=== PATIENT | female | born 1950 | race African-American/Black ===

== ENCOUNTER 2018-10-11 17:51 | Emergency (ER) | payer BC ==
[~2018-10-11] VITALS: Ht 167.6 cm; Wt 85.0 kg
[~2018-10-11 17:51] MED LIST: LOTREL
[2018-10-11] MEDS ORDERED: IBUPROFEN 600MG TABLET PO ONE (18:45)
[2018-10-11 18:59] VITALS: BP 158/70
== END 2018-10-11 20:39 | disposition home or self-care (01) ==
LOC: ER 17:51
DX: S83.91XA Sprain of unspecified site of right knee, initial encounter (principal); S76.011A Strain of muscle, fascia and tendon of right hip, initial encounter; M47.896 Other spondylosis, lumbar region; I10 Essential (primary) hypertension; Z88.3 Allergy status to other anti-infective agents; Z88.0 Allergy status to penicillin; W01.0XXA Fall on same level from slipping, tripping and stumbling without subsequent striking against object, initial encounter; Y93.89 Activity, other specified; Y92.89 Other specified places as the place of occurrence of the external cause; Y99.8 Other external cause status
CPT/HCPCS: 73522; 73562; 99283

== ENCOUNTER 2022-01-14 21:26 | Emergency (ER) | payer BC ==
[~2022-01-14] VITALS: Ht 170.2 cm; Wt 84.0 kg
[2022-01-14] MEDS ORDERED: ACETAMINOPHEN 325MG TABLET PO ONE (23:30)
[2022-01-15] MEDS ORDERED: ACETAMINOPHEN 325MG TABLET PO SCH (00:45)
[2022-01-15] MEDS ORDERED: TOPUD MT (02:08)
[2022-01-15 02:39] VITALS: BP 152/83
== END 2022-01-15 02:52 | disposition home or self-care (01) ==
LOC: ER 21:26
DX: M25.551 Pain in right hip (principal); M25.561 Pain in right knee; M79.651 Pain in right thigh; M54.50 Low back pain, unspecified; M79.642 Pain in left hand; W18.39XA Other fall on same level, initial encounter; Y93.89 Activity, other specified; Y92.89 Other specified places as the place of occurrence of the external cause; Y99.8 Other external cause status; I10 Essential (primary) hypertension; Z88.0 Allergy status to penicillin
CPT/HCPCS: 72100; 73130; 73502; 73552; 73562; 99284